=== PATIENT | female | born 1995 | race African-American/Black ===

== ENCOUNTER 2020-01-06 10:13 | Emergency (ER) | payer MEDICAID ==
[2020-01-06 10:22] VITALS: BP 128/82
[2020-01-06] MEDS ORDERED: FLUORESCEIN 1 MG STRIP OP ONE (11:15)
[2020-01-06] MEDS ORDERED: TETRACAINE 0.5% OPHTH SOLN 4ML OU ONE (11:15)
--- NOTE | 2020-01-06 12:01 | Emergency Department Report ---
ED Eye Problem HPI - General Chief complaint: Eye Problems Stated complaint: PINK EYE Time Seen by Provider: 01/06/20 11:13 Source: patient Mode of arrival: Ambulatory Limitations: No Limitations - History of Present Illness Initial comments: This is a 24-year-old female nontoxic, well nourished in appearance, no acute signs of distress presents to the ED with c/o of left eye redness, itching and pain x 3 weeks. Patient was seen in a urgent care and placed on some different antibiotics which is not getting better. Denies following up with a ophtha lmologist. Patient denies any trauma to the eye. Denies any foreign body sensation or floaters. Patient denies any visual changes or decreased vision. Patient denies any fever, chills, nausea, vomiting, chest pain, breath, headache, stiff neck numbness or tingling. Patient denies any allergies. MD chief complaint: eye pain, eye redness -: week(s) (3) Location: right eye If Injury: none Eye Symptoms: burning, pain, itching Severity: mild Severity scale (0 -10): 3 If Pain, Quality: aching Consistency: intermittent Associated Symptoms: none. denies: headache, neck pain, nausea/vomiting, cough, rhinorrhea, fever, shortness of breath - Related Data Previous Rx's Medication Instructions Recorded Last Taken Type Gentamicin 0.3% Ophth Soln 2 drops OP Q4H #1 bottle 01/06/20 Unknown Rx ED Review of Systems ROS: Stated complaint: PINK EYE Other details as noted in HPI Constitutional: denies: chills, fever Eyes: eye pain, eye discharge. denies: vision change ENT: denies: ear pain, throat pain Respiratory: denies: cough, shortness of breath, wheezing Cardiovascular: denies: chest pain, palpitations Endocrine: no symptoms reported Gastrointestinal: denies: abdominal pain, nausea, diarrhea Genitourinary: denies: urgency, dysuria, discharge Musculoskeletal: denies: back pain, joint swelling, arthralgia Skin: denies: rash, lesions Neurological: denies: headache, weakness, paresthesias Psychiatric: denies: anxiety, depression Hematological/Lymphatic: denies: easy bleeding, easy bruising ED Past Medical Hx - Past Medical History Previous Medical History?: Yes - Surgical History Past Surgical History?: No - Social History Smoking Status: Never Smoker Substance Use Type: None - Medications Home Medications: Home Medications Medication Instructions Recorded Confirmed Last Taken Type Gentamicin 0.3% Ophth Soln 2 drops OP Q4H #1 bottle 01/06/20 Unknown Rx ED Physical Exam - General Limitations: No Limitations General appearance: alert, in no apparent distress - Head Head exam: Present: atraumatic, normocephalic - Eye Eye exam: Present: normal appearance, PERRL, EOMI. Absent: scleral icterus, conjunctival injection, nystagmus, periorbital swelling, periorbital tenderness Pupils: Present: normal accommodation - Expanded Eye Exam Expanded Eyelids: Normal Inspection: Left Pupils: Regular, Round: Left, Reactive: Left Sclera/Conjunctival: Normal Inspection: Left Anterior chamber: Normal Inspection: Left Visual acuity (R) = 20/: 40 Visual acuity (L) = 20/: 70 With correction: No IOP measured with: Tonopen (right eye-11, 12, 10) - Neck Neck exam: Present: normal inspection, full ROM - Respiratory Respiratory exam: Absent: respiratory distress - Cardiovascular Cardiovascular Exam: Present: regular rate - Extremities Exam Extremities exam: Present: full ROM - Back Exam Back exam: Present: full ROM - Neurological Exam Neurological exam: Present: alert, oriented X3, normal gait - Psychiatric Psychiatric exam: Present: normal affect, normal mood - Skin Skin exam: Present: warm, dry, intact, normal color. Absent: rash - Other Other exam information: Under Barney lamp, I used fluorescein and tetracaine to examine cornea for corneal abrasion or foreign body, with positive for corneal abrasion but without any foreign body noted upon exam. ED Course Vital Signs 01/06/20 10:18 Temperature 99.1 F Pulse Rate 63 Respiratory 18 Rate Blood Pressure 128/82 Blood Pressure 126/75 [Right] O2 Sat by Pulse 100 Oximetry - Reevaluation(s) Reevaluation #1: 01/06/20 12:01 Patient is speaking in full sentences with no signs of distress noted. - Consultations Consultation #1: 01/06/20 12:01 Patient has been consulted with Dr. Hernandez about patient history, physical exam, and examined and seen patient and discharge plan of care. ED Medical Decision Making - Medical Decision Making 24-year-old female that presents with right corneal abrasion. Patient is stable and was examined by me and Dr. Hernandez. Patient be treated with gentamicin eyedrops. Patient was instructed to follow-up with a learning services coordinator doctor in 2 days or if symptoms worsen and continue return to emergency room as soon as possible. At time of discharge, the patient does not seem toxic or ill in appearance. No acute signs of distress noted. Patient agrees to discharge treatment plan of care. No further questions noted by the patient. Critical care attestation.: If time is entered above; I have spent that time in minutes in the direct care of this critically ill patient, excluding procedure time. ED Disposition Clinical Impression: Right cornea abrasion Qualifiers: Encounter type: initial encounter Qualified Code(s): S05.01XA - Injury of conjunctiva and corneal abrasion without foreign body, right eye, initial encounter Disposition: TO HOME OR SELFCARE Is pt being admited?: No Does the pt Need Aspirin: No Condition: Stable Instructions: Corneal Abrasion (ED) Additional Instructions: Follow-up with a learning services coordinator doctor in 2 days or if symptoms worsen and continue return to emergency room as soon as possible. Prescriptions: Gentamicin 0.3% Ophth Soln 2 drops OP Q4H #1 bottle Referrals: PRIMARY CARE, [Referring] - 3-5 Days DARRELL ELIZABETH MD [Staff Physician] - 01/07/20 Forms: Work/School Release Form(ED)
== END 2020-01-06 12:12 | disposition home or self-care (01) ==
LOC: ED 10:13
DX: S05.01XA Injury of conjunctiva and corneal abrasion without foreign body, right eye, initial encounter (principal); Z79.899 Other long term (current) drug therapy; X58.XXXA Exposure to other specified factors, initial encounter; Y93.89 Activity, other specified; Y92.89 Other specified places as the place of occurrence of the external cause; Y99.8 Other external cause status
CPT/HCPCS: 99282

== ENCOUNTER 2020-10-09 10:25 | Emergency (ER) | payer MEDICAID ==
[2020-10-09 10:48] VITALS: BP 124/79
--- NOTE | 2020-10-09 11:14 | Emergency Department Report ---
ED HPI - General Chief complaint: Abdominal Pain Stated complaint: 18 WEEKS /ABD CRAMPING Time Seen by Provider: 10/09/20 11:08 Source: patient Mode of arrival: Ambulatory Limitations: No Limitations - History of Present Illness Initial comments: 24-year-old female who was 3 para 2 reports she is 18 weeks comes in complaining of lower abdominal pain. Patient states that the pain is crampy and constant. Patient denies any vaginal discharge no vaginal bleeding. Patient states that the cramping started yesterday. She does follow with Maria Esther simmons and [facility] but has not made contact in regards to this complaint. Patient reports she had no complications to her prior vaginal delivery with no complications. Her next appointment to her [facility] is in 3 weeks. Last known menstrual period was 05/31/2020. She also complains of nipple pain that is constant and feels like it is burning. She reports she is still nursing her [id number] daughter. She reports that her daughter had thrush cleared up but ever since she has been having breast burning. Patient denies any rash to her breast. She currently has no known drug allergies and taking vitamins. MD Complaint: abdominal pain Onset/Timin -: days(s) Location: pelvis Radiation: none Severity scale (0 -10): 6 Quality: cramping Consistency: constant Improves with: none Worsens with: none - Related Data Previous Rx's Medication Instructions Recorded Last Taken Type Gentamicin 0.3% Ophth Soln 2 drops OP Q4H #1 bottle 01/06/20 Unknown Rx Nitrofurantoin Victoria/M-Cryst 100 mg PO Q12HR 7 Days #14 capsule 10/09/20 Unknown Rx [Macrobid CAP] Allergies Allergy/AdvReac Type Severity Reaction Status Date / Time No Known Allergies Allergy Unverified 10/09/20 10:41 ED Review of Systems ROS: Stated complaint: 18 WEEKS /ABD CRAMPING Other details as noted in HPI ED Past Medical Hx - Past Medical History Previous Medical History?: Yes Additional medical history: Vaginal delivery x 2 - Surgical History Past Surgical History?: No - Social History Smoking Status: Never Smoker Substance Use Type: None - Medications Home Medications: Home Medications Medication Instructions Recorded Confirmed Last Taken Type Gentamicin 0.3% Ophth Soln 2 drops OP Q4H #1 bottle 01/06/20 Unknown Rx Nitrofurantoin Victoria/M-Cryst 100 mg PO Q12HR 7 Days #14 capsule 10/09/20 Unknown Rx [Macrobid CAP] ED Physical Exam - General Limitations: No Limitations General appearance: alert, in no apparent distress - Head Head exam: Present: atraumatic, normocephalic - Eye Eye exam: Present: normal appearance - ENT ENT exam: Present: mucous membranes moist - Neck Neck exam: Present: normal inspection, full ROM - Respiratory Respiratory exam: Present: normal lung sounds bilaterally. Absent: accessory muscle use - Cardiovascular Cardiovascular Exam: Present: regular rate - GI/Abdominal GI/Abdominal exam: Present: soft, normal bowel sounds. Absent: distended, tenderness, guarding - Extremities Exam Extremities exam: Present: normal inspection, full ROM - Back Exam Back exam: Present: normal inspection, full ROM - Neurological Exam Neurological exam: Present: alert, oriented X3, normal gait - Psychiatric Psychiatric exam: Present: normal affect, normal mood - Skin Skin exam: Present: warm, dry, intact, normal color. Absent: rash ED Course Vital Signs 10/09/20 10:41 Temperature 98.5 F Pulse Rate 89 Respiratory 20 Rate Blood Pressure 124/79 O2 Sat by Pulse 100 Oximetry ED Medical Decision Making - Radiology Data Radiology results: [place] [address] Ultrasound Report Signed Patient: SERA MCHUGH MR#: [id number] : 1995 Acct:[id number] Age/Sex: 24 / F ADM Date: 10/09/20 Loc: ED Attending Dr: Ordering Physician: MARIA L BURGESS Date of Service: 10/09/20 Procedure(s): US OB >= 14 weeks Fetus Accession Number(s): [id number] cc: MARIA L BURGESS LIMITED OBSTETRICAL ULTRASOUND HISTORY: Lower abdominal pain. FINDINGS: A single viable intrauterine is in the maternal heads left transverse position. The placenta is located at the fundus. Amniotic fluid is within normal limits. Estimated age by ultrasound is 18 weeks 2 days. heart tones are 153 bpm. Anatomical survey was not performed. The cervix measures 7 cm and is closed. IMPRESSION: Viable intrauterine dated 18 weeks 2 days by ultrasound. Signer Name: Juan R Burr MD Signed: 10/09/2020 11:54 AM Workstation Name: [id number] Transcribed By: ES Dictated By: Juan R Burr MD Electronically Authenticated By: Juan R Burr MD Signed Date/Time: 10/09/20 1154 DD/ 1152 TD/TT: Print Cancel - Medical Decision Making 24-year-old female who was 3 para 2 reports she is 18 weeks comes in complaining of lower abdominal pain. Patient states that the pain is crampy and constant. Patient denies any vaginal discharge no vaginal bleeding. Patient states that the cramping started yesterday. She is followed with [facility] simmons and [facility] but has not made contact in regards to this complaint. Patient reports she had no complications to her prior vaginal delivery with no complications. Her next appointment to her [facility] is in 3 weeks. Last known menstrual period was 05/31/2020. She also complains of nipple pain that is constant and feels like it is burning. She reports she is still nursing her [id number] daughter. She reports that her daughter had thrush cleared up but ever since she has been having breast burning. Patient denies any rash to her breast. She currently has no known drug allergies and taking vitamins. Urinalysis ultrasound has been ordered. Urine is concern for possible urinary tract infection. Will treat with Macrobid 100 mg twice a day for 7 days. Ultrasound shows a viable intrauterine gestation at 18 weeks and 2 days. Heartbeat at the baby is 153 bpm. Recommend to follow- up with your [facility]. Critical care attestation.: If time is entered above; I have spent that time in minutes in the direct care of this critically ill patient, excluding procedure time. ED Disposition Clinical Impression: UTI (urinary tract infection) Qualifiers: Urinary tract infection type: site unspecified Hematuria presence: without hematuria Qualified Code(s): N39.0 - Urinary tract infection, site not specified Disposition: - TO HOME OR SELFCARE Is pt being admited?: No Does the pt Need Aspirin: No Condition: Stable Instructions: Abdominal Pain (ED), and Urinary Tract Infection Additional Instructions: Urine is concern for possible urinary tract infection. Will treat with Macrobid 100 mg twice a day for 7 days. Ultrasound shows a viable intrauterine gestation at 18 weeks and 2 days. Heartbeat at the baby is 153 bpm. Recommend to follow- up with your [facility]. Prescriptions: Nitrofurantoin Victoria/M-Cryst [Macrobid CAP] 100 mg PO Q12HR 7 Days #14 capsule Referrals: PRIMARY CARE, [Primary Care Provider] - 3-5 Days [facility] [Other] - 3-5 Days
[2020-10-09 11:57] LABS: Bacteria,Urine 2+ /HPF (Negative); Bilirubin,Urine NEG (Negative); Blood,Urine NEG (Negative); Color,Urine Yellow (Yellow); Mucus,Urine FEW /HPF; Protein,Urine <15 mg/dL mg/dL (Negative); Urobilinogen,Urine < 2.0 mg/dL (<2.0)
--- NOTE | 2020-10-09 11:58 | Ultrasound Report ---
LIMITED OBSTETRICAL ULTRASOUND HISTORY: Lower abdominal pain. FINDINGS: A single viable intrauterine is in the maternal heads left transverse position. T he placenta is located at the fundus. Amniotic fluid is within normal limits. Estimated age by ultrasound is 18 weeks 2 days. heart tones are 153 bpm. Anatomical survey was not performed. The cervix measures 7 cm and is closed. IMPRESSION: Viable intrauterine dated 18 weeks 2 days by ultrasound. Signer Name: Juan R Burr MD Signed: 10/09/2020 11:54 AM Workstation Name: [id number]
== END 2020-10-09 13:33 | disposition home or self-care (01) ==
LOC: ED 10:25
DX: O23.42 Unspecified infection of urinary tract in pregnancy, second trimester (principal); Z3A.18 18 weeks gestation of pregnancy; Z98.890 Other specified postprocedural states; Z79.899 Other long term (current) drug therapy
CPT/HCPCS: 76805; 81001; 99284

== ENCOUNTER 2020-12-10 11:39 | Observation (INO) | payer MEDICAID | END 2020-12-10 21:45 | disposition home or self-care (01) | LOC: ED 11:39 → APU 20:12 | PROVIDERS: ADMIT Obstetrics & Gynecology; ATTEND Obstetrics & Gynecology | DX: O98.512 Other viral diseases complicating pregnancy, second trimester (principal); U07.1 COVID-19; R05 Cough; Z3A.27 27 weeks gestation of pregnancy | CPT/HCPCS: 36415; 71045; 80053; 85025; G0378; J7120 ==